=== PATIENT | female | born 1990 | race Caucasian/White ===

== ENCOUNTER 2021-09-20 23:08 | Emergency (ER) | payer MEDICAID ==
[~2021-09-20] VITALS: Ht 167 cm; Wt 92.0 kg
[2021-09-20] MEDS ORDERED: KETOROLAC 30 MG/ML VIAL IVP STA (23:38)
[2021-09-20] MEDS ORDERED: NS IV 1000 ML 1,000 ML IV SCH (23:45)
--- NOTE | 2021-09-20 23:57 | ED General ---
General Chief Complaint: General Problems/Pain Stated Complaint: NAUSEA/WEAKNESS Source of Information: Patient History of Present Illness Date Seen by Provider: Sep 20, 2021 Time Seen by Provider: 23:19 Initial Comments 30-year-old female presenting with complaints of 4 to 5 days of feeling generally weak, nauseated, pains at the base of her chest and the back, some sharp pains in the front of her chest, pains into her legs and calves especially on the left, tingling in her fingers, tingling in her left foot. She was seen in the ER urgent care on Saturday when her symptoms started and reportedly had a negative Covid swab. She also had a urine test at that time that showed possible infection. However the culture ended up growing out no actual bacteria so she got a call stating that she did not need to continue the antibiotics. She has continued to have pain around the kidney. Her back as well as having shortness of breath and cough. She does not have a primary care provider in the local area. She feels very anxious and worried about what was going on. She was concerned that she may be had Covid, STD, blood clots. Timing/Duration: 4-5 Days Severity: Moderate Associated Systoms: Chest Pain (Sharp chest pains in the anterior chest as well as some at the CVA area bilaterally), Cough; No Diaphoresis, No Fever/Chills, No Headaches; Loss of Appetite, Malaise; No Nausea/Vomiting, No Rash, No Seizure; Shortness of Air; No Syncope; Weakness Allergies and Home Medications Allergies Coded Allergies: No Known Drug Allergies (Unverified , 09/20/21) Patient Home Medication List Home Medication List Reviewed: Yes Review of Systems Review of Systems Constitutional: see HPI; No chills, No fever EENTM: see HPI Respiratory: see HPI Cardiovascular: see HPI Gastrointestinal: see HPI Genitourinary: see HPI Musculoskeletal: see HPI Skin: see HPI Psychiatric/Neurological: See HPI Past Paveopn-Gpngul-Yveoxn Hx Patient Social History Tobacco Use?: No Use of E-Cig and/or Vaping dev: No Substance use?: No Alcohol Use?: No Pt feels they are or have been: No Physical Exam Vital Signs Vital Signs - First Documented 09/20/21 23:34 Temp 37.3 Pulse 86 Resp 14 B/P (MAP) 142/97 (112) Pulse Ox 98 O2 Delivery Room Air Capillary Refill : Less Than 3 Seconds Height, Weight, BMI Height: '" Weight: lbs. oz. kg; 32.00 BMI Method: General Appearance: WD/WN, Anxious HEENT: PERRL/EOMI, Pharynx Normal Neck: Full Range of Motion, Normal Inspection, Non Tender, Supple Respiratory: Chest Non Tender, Lungs Clear, Normal Breath Sounds, No Accessory Muscle Use, No Respiratory Distress Cardiovascular: Regular Rate, Rhythm, Normal Peripheral Pulses Gastrointestinal: Normal Bowel Sounds, No Pulsatile Mass, Non Tender, Soft Rectal: Deferred Back: CVA Tenderness (L), CVA Tenderness (R) Extremity: Normal Capillary Refill, Normal Inspection, No Pedal Edema, Calf Tenderness (Bilateral) Neurologic/Psychiatric: Alert, Oriented x3, research & insights executive II-XII Norm as Tested Skin: Normal Color, Warm/Dry; No Ecchymosis, No Erythema Progress/Results/Core Measures Suspected Sepsis SIRS Temperature: Pulse: 86 Respiratory Rate: 14 Laboratory Tests 09/21/21 00:02: White Blood Count 10.2 Blood Pressure 142 /97 Mean: 112 Laboratory Tests 09/21/21 00:02: Creatinine 0.82, INR Comment 0.9, Platelet Count 263, Total Bilirubin 0.4 Results/Orders Lab Results Laboratory Tests Test 09/20/21 23:52 09/21/21 00:02 09/21/21 00:10 Range/Units Urine Color YELLOW Urine Clarity CLEAR Urine pH 6.0 5-9 Urine Specific Edgar 1.010 L 1.016-1.022 Urine Protein NEGATIVE NEGATIVE Urine Glucose (UA) NEGATIVE NEGATIVE Urine Ketones NEGATIVE NEGATIVE Urine Nitrite NEGATIVE NEGATIVE Urine Bilirubin NEGATIVE NEGATIVE Urine Urobilinogen 0.2 < = 1.0 MG/DL Urine Leukocyte Esterase NEGATIVE NEGATIVE Urine RBC (Auto) NEGATIVE NEGATIVE Urine RBC NONE /HPF Urine WBC NONE /HPF Urine Squamous Epithelial Cells 0-2 /HPF Urine Crystals NONE /LPF Urine Bacteria NEGATIVE /HPF Urine Casts NONE /LPF Urine Mucus NEGATIVE /LPF Urine Culture Indicated NO White Blood Count 10.2 4.3-11.0 10^3/uL Red Blood Count 4.12 3.80-5.11 10^6/uL Hemoglobin 12.3 11.5-16.0 g/dL Hematocrit 36 35-52 % Mean Corpuscular Volume 87 80-99 fL Mean Corpuscular Hemoglobin 30 25-34 pg Mean Corpuscular Hemoglobin Concent 34 32-36 g/dL Red Cell Distribution Width 12.2 10.0-14.5 % Platelet Count 263 130-400 10^3/uL Mean Platelet Volume 11.0 9.0-12.2 fL Immature Granulocyte % (Auto) 0 % Neutrophils (%) (Auto) 50 42-75 % Lymphocytes (%) (Auto) 42 12-44 % Monocytes (%) (Auto) 6 0-12 % Eosinophils (%) (Auto) 1 0-10 % Basophils (%) (Auto) 0 0-10 % Neutrophils # (Auto) 5.1 1.8-7.8 10^3/uL Lymphocytes # (Auto) 4.3 H 1.0-4.0 10^3/uL Monocytes # (Auto) 0.7 0.0-1.0 10^3/uL Eosinophils # (Auto) 0.1 0.0-0.3 10^3/uL Basophils # (Auto) 0.0 0.0-0.1 10^3/uL Immature Granulocyte # (Auto) 0.0 0.0-0.1 10^3/uL Prothrombin Time 12.8 12.2-14.7 SEC INR Comment 0.9 0.8-1.4 Activated Partial Thromboplast Time 25 24-35 SEC D-Dimer 0.58 H 0.00-0.49 UG/ML Sodium Level 136 135-145 MMOL/L Potassium Level 3.9 3.6-5.0 MMOL/L Chloride Level 101 98-107 MMOL/L Carbon Dioxide Level 24 21-32 MMOL/L Anion Gap 11 5-14 MMOL/L Blood Urea Nitrogen 16 7-18 MG/DL Creatinine 0.82 0.60-1.30 MG/DL Estimat Glomerular Filtration Rate 100 BUN/Creatinine Ratio 20 Glucose Level 99 70-105 MG/DL Calcium Level 9.4 8.5-10.1 MG/DL Corrected Calcium 9.5 8.5-10.1 MG/DL Total Bilirubin 0.4 0.1-1.0 MG/DL Aspartate Amino Transf (AST/SGOT) 14 5-34 U/L Alanine Aminotransferase (ALT/SGPT) 18 0-55 U/L Alkaline Phosphatase 56 40-136 U/L Troponin I < 0.30 <0.30 NG/ML C-Reactive Protein 1.29 H <0.50 MG/DL Total Protein 6.7 6.4-8.2 GM/DL Albumin 3.9 3.2-4.5 GM/DL My Orders Orders - JOEY MENDOZA MD Monitor-Rhythm Ecg Trace Only (09/20/21 23:38) Ed Iv/Invasive Line Start (09/20/21 23:38) Cbc With Automated Diff (09/20/21 23:38) Comprehensive Metabolic Panel (09/20/21 23:38) Crp Fs (09/20/21 23:38) Troponin I Fs (09/20/21 23:38) Protime With Inr (09/20/21:38) Partial Thromboplastin Time (09/20/21 23:38) Ekg Tracing (09/20/21 23:38) Ns Iv 1000 Ml (Sodium Chloride 0.9%) (09/20/21 23:45) Ua Culture If Indicated (09/20/21 23:38) Isolation Central Supply Req (09/20/21 23:38) Ketorolac Injection (Toradol Injection) (09/20/21 23:38) Fibrin Degradation Products (09/20/21 23:38) Urine Bedside (09/20/21 23:56) Neis Johann Dna Urine Test (09/20/21 23:56) Chlamydia Trachomatis Urine (09/20/21 23:56) Coronavirus Sars-Cov-2 So 2019 (09/21/21 00:10) Ct Angio Chest W (09/21/21 01:04) Iohexol Injection (Omnipaque 350 Mg/Ml 1 (09/21/21 01:45) Received Contrast (Hold Metformin- Contr (09/21/21 01:45) Sodium Chloride Flush (Catheter Flush Sy (09/21/21 01:45) Ns (Ivpb) (Sodium Chloride 0.9% Ivpb Bag (09/21/21 01:45) Medications Given in ED Current Medications Medications Dose Ordered Sig/Lance Route Start Time Stop Time Status Last Admin Dose Admin Iohexol 125 ml ONCE ONCE IV 09/21/21 01:45 09/21/21 01:46 DC 09/21/21 02:04 125 ML Sodium Chloride 10 ml NEEDED PRN IV 09/21/21 01:45 09/21/21 04:54 DC 09/21/21 02:04 10 ML Sodium Chloride 100 ml ONCE ONCE IV 09/21/21 01:45 09/21/21 01:46 DC 09/21/21 02:04 80 ML Vital Signs/I&O 09/20/21 09/21/21 09/21/21 23:34 02:30 04:47 Temp 37.3 Pulse 86 82 72 Resp 14 12 12 B/P (MAP) 142/97 (112) 134/85 115/82 Pulse Ox 98 100 100 O2 Delivery Room Air Room Air Room Air Capillary Refill : Less Than 3 Seconds Blood Pressure Mean: 112 Progress Note #1: Progress Note Check basic labs as well as Covid swab and D-dimer. Electrocardiogram to look at her complaint of chest pain. Give 1 L normal saline IV fluids for hydration. Progress Note #2: Progress Note Labs all appear stable without acute significant abnormality other than mild elevation of her CRP. She also had elevation of her D-dimer to 0.6. Advised patient that her test were negative for acute process other than having elevation in her D-dimer. We will order a CT angiogram of her chest. If this is also negative we'll discharge her to home and could send her with an outpatient order for ultrasound of her lower extremities. Progress Note #3: Progress Note CT angiogram was read out as negative for pneumonia or blood clots. Counseled p atient that her test results did not show anything acute that would indicate need for admission. We had ruled out several significant things such as no evidence of a heart attack, kidney failure, liver failure, blood clots, pneumonia, UTI, pyelonephritis. Recommend establishing care and following up for further evaluation and treatment. It is possible she may need thyroid testing or other tests done beyond what is available in the emergency department. ECG Initial ECG Impression Date: Sep 21, 2021 Initial ECG Impression Time: 00:01 Initial ECG Rate: 70 Initial ECG Rhythm: Normal Sinus Initial ECG Comparisson: No Previous ECG Available Comment Normal sinus rhythm with heart rate of 70 bpm. IA interval 160 ms. Low voltage precordial leads. No acute ST elevation. QT interval 398 ms with a QTc interval 430 ms. There is no prior tracing available for comparison. Diagnostic Imaging Diagonstic Imaging: CT Plain Films/CT/US/NM/MRI: chest Comments [facility]. [place], [place] NAME: PEE VILLALOBOS [facility] REC#: [id number] PT STATUS: DEP ER : 1990 PHYSICIAN: JOEY MENDOZA MD ADMIT DATE: 09/20/21/ER FS Draft Date of Exam:09/21/21 CT ANGIO CHEST W PROCEDURE: CT angiography of the chest with contrast. TECHNIQUE: Multiple contiguous axial images were obtained through the chest after uneventful bolus administration of intravenous contrast. 3D reconstructed CTA MIP acquisitions were also performed. Auto Exposure Controls were utilized during the CT exam to meet ALARA standards for radiation dose reduction. INDICATION: Chest pain and elevated d-dimer There is good opacification of pulmonary arteries without intraluminal filling defect identified. Thoracic aorta is of normal caliber. Lungs are clear. There is no significant pleural or pericardial fluid. No pathologically enlarged adenopathy is identified. There is mild residual thymic tissue. IMPRESSION: No CTA evidence of pulmonary embolism or other acute abnormality in the thorax. Dictated on workstation # [id number] Dict: 09/21/21 0541 Trans: 09/21/21 0544 [facility] [id number] Interpreted by: CONCEPCION ARMENDARIZ MD Electronically signed by: Reviewed: Reviewed by Me Departure Impression Primary Impression: Bilateral calf pain Additional Impressions: Midline thoracic back pain Qualified Codes: M54.6 - Pain in thoracic spine Atypical chest pain Person under investigation for COVID-19 Elevated d-dimer Disposition: 01 HOME, SELF-CARE Condition: Stable Departure-Patient Inst. Decision time for Depature: 04:19 Referrals: BRITTANY HUFFMAN MD NO,LOCAL PHYSICIAN (PCP) Primary Care Physician [facility] Patient Instructions: COVID-19 Tests, COVID-19 ED, Chest Pain, Adult ED, Muscle and Bone Pain (DC) Add. Discharge Instructions: Try treating your symptoms such as using ibuprofen or naproxen to help with muscle pain and inflammation. Call and establish with a local primary care provider for follow-up. You can call Dr. Brittany Huffman or her nurse practitioner Gretchen Lloyd to see about establishing care. You could also check with [facility] by calling [phone] and let them know you need to establish care with a provider. If you decide to do the ultrasound of your legs today or tomorrow you will need to call first thing in the morning to get set up for the test. To do it at [facility] you will call [phone] after 8 am and l et them know you have an order from the ER and wanted to see about setting up and ultrasound with Adela. She is their catheterization laboratory technician. To do the test in [place] at [facility] [address] you would call [phone] after 730 am and let Radiology scheduling know that you have an order to get an outpatient ultrasound done from the ER. You should quarantine until you get results of your Covid test. You will get a call about your Covid test and the test for Gonorrhea and Chlamydia. All discharge instructions reviewed with patient and/or family. Voiced understanding. Work/School Note: Work Release Form Date Seen in the Emergency Department: Sep 21, 2021 Return to Work: Sep 22, 2021 Restrictions: No Restrictions JOEY MENDOZA MD Sep 20, 2021 23:57
[2021-09-21 00:21] LABS: BASOPHILS % (AUTO) 0 % (0-10); EOSINOPHILS # (AUTO) 0.1 10^3/uL (0.0-0.3); EOSINOPHILS % (AUTO) 1 % (0-10); HEMATOCRIT 36 % (35-52); HEMOGLOBIN 12.3 g/dL (11.5-16.0); LYMPHOCYTES # (AUTO) 4.3 10^3/uL (1.0-4.0); LYMPHOCYTES % (AUTO) 42 % (12-44); MEAN CORPUSCULAR HEMOGLOBIN 30 pg (25-34); MEAN CORPUSCULAR HGB CONC 34 g/dL (32-36); MEAN CORPUSCULAR VOLUME 87 fL (80-99); MONOCYTES # (AUTO) 0.7 10^3/uL (0.0-1.0); MONOCYTES % (AUTO) 6 % (0-12); NEUTROPHILS # (AUTO) 5.1 10^3/uL (1.8-7.8); NEUTROPHILS % (AUTO) 50 % (42-75); PLATELET COUNT 263 10^3/uL (130-400); WHITE BLOOD COUNT 10.2 10^3/uL (4.3-11.0)
[2021-09-21 00:24] LABS: BILIRUBIN,URINE NEGATIVE (NEGATIVE); CLARITY,URINE CLEAR; COLOR,URINE YELLOW; GLUCOSE, URINE (UA) NEGATIVE (NEGATIVE); KETONES,URINE NEGATIVE (NEGATIVE); LEUKOCYTE ESTERASE ,URINE NEGATIVE (NEGATIVE); NITRITE,URINE NEGATIVE (NEGATIVE); PROTEIN,URINE NEGATIVE (NEGATIVE)
[2021-09-21 00:33] LABS: INR 0.9 (0.8-1.4); PROTHROMBIN TIME PATIENT 12.8 SEC (12.2-14.7)
[2021-09-21 00:34] LABS: BACTERIA,URINE NEGATIVE /HPF; SQUAMOUS EPITHELIAL CELL,UR 0-2 /HPF
[2021-09-21 00:51] LABS: ALANINE AMINOTRANSFERASE 18 U/L (0-55); ALKALINE PHOSPHATASE 56 U/L (40-136); BILIRUBIN,TOTAL 0.4 MG/DL (0.1-1.0); BUN/CREATININE RATIO 20; CALCIUM 9.4 MG/DL (8.5-10.1); CARBON DIOXIDE 24 MMOL/L (21-32); CHLORIDE 101 MMOL/L (98-107); CREATININE SERUM 0.82 MG/DL (0.60-1.30); GFR ESTIMATED 100; GLUCOSE 99 MG/DL (70-105); POTASSIUM 3.9 MMOL/L (3.6-5.0); SODIUM 136 MMOL/L (135-145)
[2021-09-21 00:52] LABS: ALBUMIN 3.9 GM/DL (3.2-4.5); TOTAL PROTEIN 6.7 GM/DL (6.4-8.2)
[2021-09-21 01:08] LABS: FIBRIN DEGRADATION PRODUCTS 0.58 UG/ML (0.00-0.49)
[2021-09-21] MEDS ORDERED: IOHEXOL 350 MG/ML 150 ML (OMNIPAQUE 350) VIAL IV ONE (01:45)
[2021-09-21] MEDS ORDERED: CATHETER FLUSH 10 ML SYR IV PRN (01:45)
[2021-09-21] MEDS ORDERED: HOLD METFORMIN - RECEIVED CONTRAST 20 ML VIAL IV SCH (01:45)
[2021-09-21] MEDS ORDERED: NS 100 ML (IVPB) BAG IV ONE (01:45)
[2021-09-21 04:47] VITALS: BP 115/82
--- NOTE | 2021-09-21 05:44 | Diagnostic Imaging Report ---
PROCEDURE: CT angiography of the chest with contrast. TECHNIQUE: Multiple contiguous axial images were obtained through the chest after uneventful bolus administration of intravenous contrast. 3D reconstructed CTA MIP acquisitions were also performed. Auto Exposure Controls were utilized during the CT exam to meet ALARA standards for radiation dose reduction. INDICATION: Chest pain and elevated d-dimer There is good opacification of pulmonary arteries without intraluminal filling defect identified. Thoracic aorta is of normal caliber. Lungs are clear. There is no significant pleural or pericardial fluid. No pathologically enlarged adenopathy is identified. There is mild residual thymic tissue. IMPRESSION: No CTA evidence of pulmonary embolism or other acute abnormality in the thorax. Dictated by: Dictated on workstation # [id number]
== END 2021-09-21 04:45 | disposition home or self-care (01) ==
LOC: ER FS 23:16
DX: R07.89 Other chest pain (principal); M54.6 Pain in thoracic spine; M79.661 Pain in right lower leg; M79.662 Pain in left lower leg; R79.89 Other specified abnormal findings of blood chemistry; Z20.822 Contact with and (suspected) exposure to COVID-19
CPT/HCPCS: 36415; 71275; 80053; 81000; 84484; 84703; 85025; 85379; 85610; 85730; 86141; 87491; 87591; 87635; 93005; 93041

== ENCOUNTER → 2022-05-22 | Outpatient (CLI) | payer MEDICAID | LOC: LABNPT 14:42 | PROVIDERS: ATTEND Registered Nurse Emergency | DX: Z00.00 Encounter for general adult medical examination without abnormal findings (principal); Z11.3 Encounter for screening for infections with a predominantly sexual mode of transmission; N39.0 Urinary tract infection, site not specified; N89.8 Other specified noninflammatory disorders of vagina | CPT/HCPCS: 87088; 87210; 87491; 87591 ==

== ENCOUNTER → 2022-08-28 | Outpatient (CLI) | payer MEDICAID | LOC: LABNPT 12:18 | PROVIDERS: ATTEND Registered Nurse Emergency | DX: N89.8 Other specified noninflammatory disorders of vagina (principal) | CPT/HCPCS: 87210 ==

== ENCOUNTER → 2022-10-16 | Outpatient (CLI) | payer MEDICAID | LOC: LABNPT 12:26 | PROVIDERS: ATTEND Registered Nurse Emergency | DX: N89.8 Other specified noninflammatory disorders of vagina (principal) | CPT/HCPCS: 87210 ==

== ENCOUNTER → 2023-01-15 | Outpatient (CLI) | payer MEDICAID | LOC: LAB FS 09:27 | PROVIDERS: ATTEND Registered Nurse Emergency | DX: N89.8 Other specified noninflammatory disorders of vagina (principal); A59.9 Trichomoniasis, unspecified | CPT/HCPCS: 87210 ==

== ENCOUNTER → 2023-02-04 | Outpatient (CLI) | payer MEDICAID | LOC: LAB FS 12:13 | PROVIDERS: ATTEND Registered Nurse Emergency | DX: Z11.3 Encounter for screening for infections with a predominantly sexual mode of transmission (principal) | CPT/HCPCS: 36415; 87210; 87491; 87591 ==